=== PATIENT | female | born 1945 | race Caucasian/White ===

== ENCOUNTER 2017-05-03 09:13 | Day surgery (SDC) | payer MEDICARE, BC ==
[2017-04-28 12:49] VITALS: BMI 26.5
[~2017-05-03 09:13] MED LIST: LACTATED RINGERS 1,000 ML IV SCH
[2017-05-03 09:30] VITALS: TEMP 98
[2017-05-03] MEDS ORDERED: LIDOCAINE 1% 20 ML VIAL (10MG/ML) FOR IV START INTRADERMA ONE (09:41)
[2017-05-03] MEDS ORDERED: PROPOFOL 10 MG/ML 20 ML VIAL IV ONE (10:42)
--- NOTE | 2017-05-03 11:06 | P.PCN ---
Date of Procedure: 05/03/17 Preoperative Diagnosis: Postoperative Diagnosis: Procedure(s) Performed: BRIEF HISTORY: Patient is a 72-year-old pleasant white female, scheduled for an elective colonoscopy as a part of evaluation of prior history of colon polyps. She also has family history of colon cancer. Her last colonoscopy was in 5 years ago. PROCEDURE PERFORMED: Colonoscopy and snare polypectomy. PREOPERATIVE DIAGNOSIS: History of colon polyps/family history of colon cancer. IV sedation per Anesthesia. PROCEDURE: After informed consent was obtained, the patient, was brought into the endoscopy unit. IV sedation was administered by Anesthesia under continuous monitoring. Digital rectal examination was normal. Initially the Olympus CF- 160 flexible video colonoscope was then inserted in the rectum, gradually advanced into the cecum without any difficulty. Careful examination was performed as the scope was gradually being withdrawn. Ileocecal valve and the appendiceal orifice were visualized and appeared normal. Prep was excellent. Mucosa of the cecum, ascending colon, transverse colon, descending colon, sigmoid colon, and rectum appeared normal. In the rectum there were 5 polyps measuring between 5 mm to 1 minute in size all of which were removed by snare polypectomy. Scattered sigmoid diverticula seen. Retroflexion was performed in the rectum and no lesions were seen. The patient tolerated the procedure well. IMPRESSION: 5 mm 4 and 1 cm rectal polyps status post snare polypectomy Scattered sigmoid diverticulosis. RECOMMENDATIONS: Findings of this examination were discussed with the patient as well as her family. She was advised to follow with the biopsy results. If the biopsy shows a tubular adenoma she can have a repeat colonoscopy in 5 years. Implants: Indications for Procedure: Operative Findings: Description of Procedure:
[2017-05-03 11:31] VITALS: BP 149/77; PULSE 62; RESP 20
== END 2017-05-03 12:04 | disposition home or self-care (01) ==
LOC: ORWHC2ENDO 09:13
PROVIDERS: ATTEND Internal Medicine Gastroenterology
DX: Z12.11 Encounter for screening for malignant neoplasm of colon (principal); K63.5 Polyp of colon; K63.4 Enteroptosis; K57.30 Diverticulosis of large intestine without perforation or abscess without bleeding; Z86.010 Personal history of colon polyps; Z80.0 Family history of malignant neoplasm of digestive organs; I10 Essential (primary) hypertension; Z86.73 Personal history of transient ischemic attack (TIA), and cerebral infarction without residual deficits; Z79.82 Long term (current) use of aspirin; Z79.899 Other long term (current) drug therapy; Z88.2 Allergy status to sulfonamides; Z88.8 Allergy status to other drugs, medicaments and biological substances; Z88.1 Allergy status to other antibiotic agents; Z91.041 Radiographic dye allergy status; Z88.0 Allergy status to penicillin; Z91.013 Allergy to seafood
CPT/HCPCS: 88305; 45385; J2704

== ENCOUNTER → 2018-07-11 | Outpatient (CLI) | payer MEDICARE, BC ==
--- NOTE | 2018-07-12 12:22 | MM ---
Reason for exam: screening (asymptomatic). Last mammogram was performed 3 years and 1 month ago. History: Patient is postmenopausal and history of other cancer. Took hormonal contraceptives for 8 years beginning at age 22. Took estrogen for 6 years beginning at age 50. Took progesterone for 6 years beginning at age 50. Physical Findings: A clinical breast exam by your physician is recommended on an annual basis and results should be correlated with mammographic findings. MG 3D Screening Mammo W/Cad Bilateral CC and MLO view(s) were taken. Prior study comparison: June 03, 2015, bilateral MG screening mammo w CAD. June 02, 2014, bilateral MG screening mammo w CAD. The breast tissue is heterogeneously dense. This may lower the sensitivity of mammography. Stable benign calcifications. There is chronic nodularity bilaterally. ASSESSMENT: Incomplete: need additional imaging evaluation, BI-RAD 0 RECOMMENDATION: Ultrasound of the right breast. (at palpable) [facility] will attempt to contact patient to return for ultrasound.
== END ==
LOC: RADMAMWWP 13:41
PROVIDERS: ATTEND Family Medicine
DX: Z12.31 Encounter for screening mammogram for malignant neoplasm of breast (principal)
CPT/HCPCS: 77063; 77067

== ENCOUNTER → 2018-07-13 | Outpatient (CLI) | payer MEDICARE, BC ==
--- NOTE | 2018-07-13 12:03 | USB ---
Reason for exam: additional evaluation requested from abnormal screening. History: Patient is postmenopausal and history of other cancer. Took hormonal contraceptives for 8 years beginning at age 22. Took estrogen for 6 years beginning at age 50. Took progesterone for 6 years beginning at age 50. Physical Findings: Nurse Summary: palpable at 3 o'clock soft mobile 0.5cm round (nurse werner). US Breast Workup Limited RT Right limited breast ultrasound including focal area of concern, retroareolar and axilla demonstrates no cystic or solid lesion seen. These results were verbally communicated with the patient and result sheet given to the patient on 07/13/18. ASSESSMENT: Negative, BI-RAD 1 RECOMMENDATION: Return to routine screening mammogram schedule for both breasts. Manage patient on a clinical basis.
== END | disposition home or self-care (01) ==
LOC: RADUSWWP 10:14
PROVIDERS: ATTEND Family Medicine
DX: R92.8 Other abnormal and inconclusive findings on diagnostic imaging of breast (principal)

== ENCOUNTER → 2018-08-17 | Outpatient (CLI) | payer MEDICARE, BC ==
[2018-08-17 10:35] VITALS: BP 148/64; PULSE 58; RESP 18; TEMP 96.8; BMI 24.7
--- NOTE | 2018-08-17 10:51 | P.GSHP ---
History of Present Illness H&P Date: 08/17/18 Chief Complaint: breast exam The patient is a 73 year old white female with a complaint of nodularity in the right breast. This was approximately a month ago at the time of her mammogram. The mammogram was felt to be incomplete and an ultrasound of the right breast was recommended which was done on [id number]. Following this the recommendation was for repeat bilateral mammogram in 1 year back on schedule. The patient denies any trauma to her progress. She denies any skin infection or skin changes of concern. No abnormal nipple discharge. The patient has not had any prior breast surgery. The patient is not having any pain in her breast at this time. The patient does like chocolate but has not had any recently. The patient it does smoke. The patient does not drink coffee or caffeinated beverages. Family History: mother: colon cancer,skin cancer squamous cell Hormonal History: menarche: 12 : 3, 3 children, first at age 21, breast fed: no menopause: 50 BCP: 15 years hormones: 7 years Past surgical history: 1. Appendectomy for cyst 2. tubaligation Past Medical History: arthritis Social History: smoke: 10 cig/day alcohol: daily drugs: none - Constitutional Constitutional: Denies chills, Denies fever - EENT Comment: bilateral cataracts Eyes: bilateral decreased vision, denies blurred vision, denies pain Ears: deny: decreased hearing, tinnitus Ears, nose, mouth and throat: Denies headache, Denies sore throat - Breasts Breasts: bilateral: as per HPI - Cardiovascular Cardiovascular: Reports high blood pressure, Reports shortness of breath, Denies chest pain - Respiratory Respiratory: Reports cough - Gastrointestinal Comment: PUD - Genitourinary (Female) Genitourinary: Denies dysuria, Denies hematuria - Menstruation Menstruation: Reports postmenopausal - Musculoskeletal Comment: ARTHRITIS DJD - Integumentary Comment: excema on legs - Neurological Comment: sciatica - Psychiatric Psychiatric: Denies anxiety, Denies depression - Endocrine Endocrine: Denies fatigue, Denies weight change - Hematologic/Lymphatic Comment: baby aspirin - Allergic/Immunologic Allergic/Immunologic: Reports seasonal allergies Past Medical History Past Medical History: CVA/TIA, Hyperlipidemia, Hypertension Additional Past Medical History / Comment(s): TIA X 2 History of Any Multi-Drug Resistant Organisms: None Reported Past Surgical History: Appendectomy Additional Past Surgical History / Comment(s): COLONOSCOPY Past Anesthesia/Blood Transfusion Reactions: No Reported Reaction Smoking Status: Former smoker - Past Family History Sister(s) Additional Family Medical History / Comment(s): car accident 67years old Father Family Medical History: Myocardial Infarction ([place]) Additional Family Medical History / Comment(s): 58years old Mother Family Medical History: Cancer Additional Family Medical History / Comment(s): at 94years old Medications and Allergies Home Medications Medication Instructions Recorded Confirmed Type Atenolol 50 mg PO BID 06/12/15 08/17/18 History Lovastatin 40 mg PO PC-SUPPER 06/12/15 08/17/18 History Aspirin EC [Ecotrin] 81 mg PO DAILY #30 tablet.dr 06/14/15 08/17/18 Rx Glucosamine/Chondr Blanco A Sod [Osteo 1 each PO DAILY 04/12/16 08/17/18 History Bi-Flex Caplet] Multivitamins, Thera [Theragran] 1 each PO DAILY 04/12/16 08/17/18 History Vitamin E (Dl,Tocopheryl Acet) 400 unit PO DAILY 04/12/16 08/17/18 History [Vitamin E] Biotin 5,000 mcg PO DAILY 08/17/18 08/17/18 History Allergies Allergy/AdvReac Type Severity Reaction Status Date / Time ampicillin Allergy Rash/Hives Verified 08/17/18 10:28 cephalexin monohydrate Allergy Unknown Verified 08/17/18 10:28 [From Keflex] Iodinated Contrast- Oral and Allergy Unknown Verified 08/17/18 10:28 IV Dye [Iodinated Contrast Media - IV Dye] Iodine and Iodide Containing Allergy Unknown Verified 08/17/18 10:28 Produc Penicillins Allergy Dyspnea Verified 08/17/18 10:28 shellfish derived [Shellfish] Allergy Unknown Verified 08/17/18 10:28 Sulfa (Sulfonamide Allergy Rash/Hives Verified 08/17/18 10:28 Antibiotics) Surgical - Exam - General well developed, well nourished, no distress - Eyes normal ocular movement - ENT no hearing loss, no congestion - Neck no masses, trachea midline - Respiratory normal respiratory effort, clear to auscultation - Cardiovascular Rhythm: regular Heart Sounds: normal: S1, S2 - Abdomen Abdomen: soft, non tender, no guarding, no rigid, no rebound - Integumentary Breast examination: Right breast: Multipositional exam of dominant masses or nodules of concern Right axilla: No adenopathy of concern Left breast: Multipositional exam no dominant masses or nodules of concern, on the left nipple there is a small area measured to be approximately 5 mm x 2 mm in size of light colored skin change the patient states it is been there for approximately 30 years Left axilla: No adenopathy of concern - Neurologic no disoriented, no combative Results Mammogram and ultrasound results reviewed Assessment and Plan Assessment: Impression: 1. Cystic change in right breast which appears to have resolved 2. Small nipple skin change which has been present for approximately 30 years 3. Fibrocystic breast changes 4. Nicotine dependence 5. Hypertension 6. Eczema Plan: 1. Bilateral breast mammogram in 1 year from prior mammogram with physician exam at that time 2. Six-month follow-up related to the left breast nipple lesion 3. Medical management of medical conditions We have discussed the cyst and the breast may be related to caffeine intake and nicotine. The patient understands this and is trying to stop smoking at this time. Cc: Dr. Suarez
== END ==
LOC: WWCWWP 09:49
PROVIDERS: ATTEND Surgery
DX: Z53.9 Procedure and treatment not carried out, unspecified reason (principal)

== ENCOUNTER → 2018-12-27 | Outpatient (CLI) | payer MEDICARE, BC ==
--- NOTE | 2018-12-27 16:00 | MR ---
EXAMINATION TYPE: MR brain wo/w con DATE OF EXAM: 12/27/2018 COMPARISON: NONE HISTORY: Anosmia. Lack of smell and taste TECHNIQUE: Multiplanar, multisequence images of the brain and brainstem is performed without and with IV contras t, utilizing 6 mL intravenous Gadavist . FINDINGS: Diffusion weighted images demonstrate no evidence of a recent infarct or other diffusion ab normality. There is no extra-axial fluid collection. Mild burden nonspecific white matter changes se en as few areas of T2/FLAIR hyperintensity scattered within the subcortical, pericallosal, and perive ntricular white matter. These measure up to 6 x 3 mm on the right. The ventricular system and cistern al spaces are mildly prominent compatible with age-related volume loss. The brain volume is age appr opriate. Midline structures demonstrate normal morphology. The craniocervical junction appears within normal limits. Post contrast images demonstrate no abnormal enhancement. The dural venous sinuses appear pa tent. The visualized sinuses demonstrate very minimal mucosal thickening of the maxillary and ethmoid sinuses. Remaining paranasal sinuses and mastoid air cells are are clear and the globes are intact. A very small Thornwaldt cyst is seen . There is scant amount of fluid in the dependent frontal sinus is adjacent to the olfactory bulbs with out erosion through the frontal sinuses or extra-axial mass. No abnormal enhancement is seen along th e olfactory nerves. Elyse yoli is unremarkable without deviation. There is no mass at the cerebella r pontine angle. IMPRESSION: 1. No abnormal enhancement or mass effect on the olfactory nerves. Small amount of adjacent mucosal t hickening is seen within the frontal sinuses however no osseous erosion or extra-axial fluid collecti on is seen. 2. No acute infarct, mass effect or abnormal intracranial enhancement. 3. Very minimal mucosal thickening of the maxillary and ethmoid sinuses. 4. Mild burden nonspecific white matter change without enhancement is seen in the periventricular, foster bcortical and pericallosal region. 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
== END | disposition home or self-care (01) ==
LOC: RADMRIMAIN 12:07
PROVIDERS: ATTEND Otolaryngology
DX: R90.89 Other abnormal findings on diagnostic imaging of central nervous system (principal); R43.0 Anosmia
CPT/HCPCS: 70553; A9585

== ENCOUNTER → 2019-02-15 | Outpatient (CLI) | payer MEDICARE, BC ==
[2019-02-15 11:49] VITALS: BP 146/75; PULSE 65; RESP 16; TEMP 98.7; BMI 24.8
--- NOTE | 2019-02-15 12:33 | P.PN ---
Subjective Progress Note Date: 02/15/19 Principal diagnosis: skin change left nipple area The patient is a 73-year-old white female who was initially seen in July 2018. At that time there was noted to be a small area of skin color change at the left in the periareolar region. The patient states that this area has been stable for approximately 30 years. However she is coming back for today's examination just to confirm that this area has remained stable. Her last mammogram was done in June 2018. This was a 3-D mammogram after which it was recommended that she have an ultrasound of the right breast. Ultrasound of the right breast was benign as well and based on these radiographs was recommended she have repeat bilateral mammogram in June 2019. At that time he understood document a small mobile 0.5 cm lesion at 3:00 in the right breast. The patient did not feel anything in her breasts initially and does not feel anything in her breast at this time. I also on physical exam in July 2018 did not find anything I was concerned about in her breasts. The patient smokes rarely. She does not drink caffeinated beverages. And although she likes chocolate she does not eat it routinely. Family history: Mother: Colon cancer, squamous cell carcinoma of the skin Past Surgical History: 1. appy 2. tubaligation Medical History: 1. arthritis 2. 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) Review of systems: HEENT: Lost sense of taste and smell in August 2018 Lungs: Negative Heart: Negative GI: Negative : negative neurologic: mini strokes Musculoskeletal: Arthritis Psychiatric: Negative Bleeding abnormalities: Negative ALLERGIES: Seasonal and see H&P Objective - Vital Signs Vital signs: Vital Signs Temp 98.7 F 02/15/19 11:46 Pulse 65 02/15/19 11:46 Resp 16 02/15/19 11:46 BP 146/75 02/15/19 11:46 Pulse Ox 95 02/15/19 11:46 Intake & Output 02/14/19 02/15/19 02/15/19 18:59 06:59 18:59 Weight 61.689 kg - Exam BMI 24.9 - Constitutional General appearance: Present: average body habitus - EENT Eyes: Present: EOMI ENT: Present: hearing grossly normal - Neck Neck: Present: normal ROM - Respiratory Respiratory: bilateral: CTA - Cardiovascular Rhythm: regular Heart sounds: normal: S1, S2 - Integumentary Integumentary: Present: normal turgor - Musculoskeletal Musculoskeletal: Present: gait normal - Psychiatric Psychiatric: Present: A&O x's 3, appropriate affect, intact judgment & insight - Additional findings Additional findings: Breast examination: Right breast: Multi-positional exam fibrocystic changes Right axilla: No adenopathy of concern Left breast: Multi-positional exam fibrocystic changes, no dominant masses or nodules of concern At the nipple there was a small white protuberance which is 4 mm x 3 mm in size, this has not changed and is stable as per the patient for the past 30 years Left axilla: No adenopathy of concern Assessment and Plan Assessment: Impression: 1. prior TIA 2. skin lesion left nipple area/stable 3. fibrocystic breast changes 4. bilateral mammogram 2017 5. loss of taste and smell 6. family history of cancer Plan: 1. bilateral mammogram 1018 2. appt after mammogram 3. medical management of medical conditions CC: Dr. Suarez
== END ==
LOC: WWCWWP 11:35
PROVIDERS: ATTEND Surgery
DX: Z53.9 Procedure and treatment not carried out, unspecified reason (principal)

== ENCOUNTER → 2019-07-09 | Outpatient (CLI) | payer MEDICARE, BC ==
--- NOTE | 2019-07-10 11:25 | MM ---
Reason for exam: screening (asymptomatic). Last mammogram was performed 1 year ago. History: Patient is postmenopausal and history of other cancer. Took hormonal contraceptives for 8 years beginning at age 22. Took estrogen for 6 years beginning at age 50. Took progesterone for 6 years beginning at age 50. Physical Findings: A clinical breast exam by your physician is recommended on an annual basis and results should be correlated with mammographic findings. MG 3D Screening Mammo W/Cad Bilateral CC and MLO view(s) were taken. Prior study comparison: July 11, 2018, bilateral MG 3d screening mammo w/cad. June 03, 2015, bilateral MG screening mammo w CAD. The breast tissue is heterogeneously dense. This may lower the sensitivity of mammography. No significant changes when compared with prior studies. ASSESSMENT: Benign, BI-RAD 2 RECOMMENDATION: Routine screening mammogram of both breasts in 1 year.
== END | disposition home or self-care (01) ==
LOC: RADMAMWWP 12:44
PROVIDERS: ATTEND Surgery
DX: Z12.31 Encounter for screening mammogram for malignant neoplasm of breast (principal)
CPT/HCPCS: 77063; 77067

== ENCOUNTER → 2019-07-12 | Outpatient (CLI) | payer MEDICARE, BC ==
[2019-07-12 11:49] VITALS: BP 127/82; PULSE 69; RESP 18; TEMP 97.9; BMI 24.3
--- NOTE | 2019-07-12 12:27 | P.PN ---
Subjective Progress Note Date: 07/12/19 Principal diagnosis: skin change left breast, fibrocystic breast changes Jamila presents today for examination of the skin of her left breast/ aerolar area where she has a dark area near the nipple periareolar complex which she states has not changed. Additionally she does not report any lumps masses or nodules in either breast. She is not complaining of any nipple discharge or skin changes. She is not complaining of any pain in her breast. She has no history of any recent trauma or infections to the breast. She had abilateral mammogra on 07-09 which was benign BIRAD 2. About seven years ago the patient was having pain bilaterally in her breast however, stopped her caffiene intake with resolution of the pain. She does not drink caffiene. She does not smoke regularly. She does eat chocolate regularaly. Family history: Mother: Colon cancer, squamous cell carcinoma of the skin Past Surgical History: 1. appy 2. tubaligation Medical History: 1. arthritis 2. 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 TIA times 5, affected memmory Review of systems: HEENT: Lost sense of taste and smell in August 2018 Lungs: Negative Heart: Negative GI: Negative : negative neurologic: mini strokes Musculoskeletal: Arthritis Psychiatric: Negative Bleeding abnormalities: Negative ALLERGIES: Seasonal and see H&P Objective - Vital Signs Vital signs: Vital Signs Temp 97.9 F 07/12/19 11:44 Pulse 69 07/12/19 11:44 Resp 18 07/12/19 11:44 BP 127/82 07/12/19 11:44 Pulse Ox 98 07/12/19 11:44 Intake & Output 07/11/19 07/12/19 07/12/19 18:59 06:59 18:59 Weight 60.328 kg - Exam BMI 24.3 - Constitutional General appearance: Present: average body habitus - EENT Eyes: Present: EOMI ENT: Present: hearing grossly normal - Neck Neck: Present: normal ROM - Respiratory Respiratory: bilateral: CTA - Cardiovascular Rhythm: regular Heart sounds: normal: S1, S2 - Gastrointestinal Gastrointestinal Comment(s): no guarding or rebound, normal bowel sounds General gastrointestinal: Present: soft - Musculoskeletal Musculoskeletal: Present: gait normal - Psychiatric Psychiatric: Present: A&O x's 3, appropriate affect - Additional findings Additional findings: breast exam: right breast: Multi-positional exam fibrocystic changes, no dominant masses or nodules of concern Right axilla: No adenopathy of concern Left breast: Multi-positional exam fibrocystic changes, no dominant mass or not his of concern, at 12 oclock position of the nipple which is light in color and has not changed for many years left axilla: no adenopathy of concern Assessment and Plan Assessment: impression: 1. fibrocystic breast changes 2. skin change left nipple 3. bilateral mammogram [facility]2018 BIRAD 2 follow up in one year 4. loss of taste and smell 5. family history of cancer 6. prior TIA's has had 5; difficulty with memmory plan: 1. bilateral mammogram in 1 year with appointment at that time 2. call if any changes in skin lesion left nipple, have discussed resection of nipple skin lesion and patient does not want to do this at this timem 3. medical management of medical conditions CC: Dr. Suarez time 20 minutes
== END | disposition home or self-care (01) ==
LOC: WWCWWP 11:33
PROVIDERS: ATTEND Surgery
DX: Z53.9 Procedure and treatment not carried out, unspecified reason (principal)

== ENCOUNTER → 2020-07-13 | Outpatient (CLI) | payer MEDICARE, BC ==
--- NOTE | 2020-07-15 08:43 | MM ---
Reason for exam: screening (asymptomatic). Last mammogram was performed 1 year ago. History: Patient is postmenopausal and history of other cancer. Took hormonal contraceptives for 8 years beginning at age 22. Took estrogen for 6 years beginning at age 50. Took progesterone for 6 years beginning at age 50. Physical Findings: A clinical breast exam by your physician is recommended on an annual basis and results should be correlated with mammographic findings. MG 3D Screening Mammo W/Cad Bilateral CC and MLO view(s) were taken. Prior study comparison: July 09, 2019, bilateral MG 3d screening mammo w/cad. July 11, 2018, bilateral MG 3d screening mammo w/cad. The breast tissue is heterogeneously dense. This may lower the sensitivity of mammography. No significant changes when compared with prior studies. ASSESSMENT: Benign, BI-RAD 2 RECOMMENDATION: Routine screening mammogram of both breasts in 1 year.
== END | disposition home or self-care (01) ==
LOC: RADMAMWWP 13:57
PROVIDERS: ATTEND Surgery
DX: Z12.31 Encounter for screening mammogram for malignant neoplasm of breast (principal)
CPT/HCPCS: 77063; 77067

== ENCOUNTER → 2020-07-17 | Outpatient (CLI) | payer MEDICARE, BC ==
[2020-07-17 12:00] VITALS: BP 157/66; PULSE 66; RESP 16; TEMP 98
--- NOTE | 2020-07-17 12:13 | P.PN ---
Subjective Progress Note Date: 07/17/20 Principal diagnosis: fibrocystic breast exam Jamila is a 75 year old white female who has a history of fibrocystic breast changes. She underwent a bilateral mammogram on [id number] which was benign BIRADS 2. She states that she feels nodules under both of her arms. She does not feel anything in either breast. The nodules are nontender. She does not complain of any nipple discharge or skin changes.History of any fever or chills. No history of any infection. Caffeine: rare Nicotine: 8 cigarettes per day Theophylline: Patient eats M&Ms Family History: mother: colon cancer,skin cancer squamous cell Hormonal History: menarche: 12 : 3, 3 children, first at age 21, breast fed: no menopause: 50 BCP: 15 years hormones: 7 years Past surgical history: 1. Appendectomy for cyst 2. tubaligation Past Medical History: arthritis Inability to taste or smell Social History: smoke: 8 cig/day alcohol: daily drugs: none - Constitutional Constitutional: Denies chills, Denies fever - EENT Comment: bilateral cataracts Eyes: bilateral decreased vision, denies blurred vision, denies pain Ears: deny: decreased hearing, tinnitus Ears, nose, mouth and throat: Denies headache, Denies sore throat - Breasts Breasts: bilateral: as per HPI - Cardiovascular Cardiovascular: Reports high blood pressure, Reports shortness of breath, Denies chest pain - Respiratory Respiratory: Reports cough - Gastrointestinal Comment: PUD - Genitourinary (Female) Genitourinary: Denies dysuria, Denies hematuria - Menstruation Menstruation: Reports postmenopausal - Musculoskeletal Comment: ARTHRITIS DJD - Integumentary Comment: excema on legs - Neurological Comment: sciatica - Psychiatric Psychiatric: Denies anxiety, Denies depression - Endocrine Endocrine: Denies fatigue, Denies weight change - Hematologic/Lymphatic Comment: baby aspirin - Allergic/Immunologic Allergic/Immunologic: Reports seasonal allergies Objective - Vital Signs Vital signs: Vital Signs Temp 98.0 F 07/17/20 11:55 Pulse 66 07/17/20 11:55 Resp 16 07/17/20 11:55 BP 157/66 07/17/20 11:55 Pulse Ox 99 07/17/20 11:55 Intake & Output 11/19/20 11/20/20 11/20/20 18:59 06:59 18:59 Weight 61.235 kg - Exam BMI 26.4 - Constitutional General appearance: Present: average body habitus - EENT Eyes: Present: EOMI ENT: Present: hearing grossly normal - Neck Details: Right submandibular area tender/probable lymph node at this site Neck: Present: normal ROM - Respiratory Respiratory: bilateral: CTA - Cardiovascular Rhythm: regular Heart sounds: normal: S1, S2 - Gastrointestinal General gastrointestinal: Present: normal bowel sounds, soft - Integumentary Integumentary: Present: normal turgor - Musculoskeletal Musculoskeletal: Present: gait normal - Psychiatric Psychiatric: Present: A&O x's 3, appropriate affect - Additional findings Additional findings: breast exam: BRA: 36DD inspection: bilateral grade 2/3 ptosis, bilateral shoulder notching palpation: right breast: Multiple positional exam fibrocystic changes, no dominant masses or nodules of concern Right axilla: Skin tag no adenopathy of concern Left breast: Multi-positional exam fibrocystic changes no dominant masses or nodules of concern, there is some discoloration of the nipple which has been present for many years as per the patient Left axilla: No adenopathy of concern Assessment and Plan Assessment: Impression: 1. Fibrocystic breast changes 2. Tender submandibular no right side 3. Right axillary skin tag, left axillary probable seborrheic keratosis Plan: 1. Follow-up with primary care doctor regarding tender submandibular node 2. Follow-up mammogram in 1 year with physician exam at that time 2. Continue surveillance of axillary skin changes patient to call if these enlarged we will be happy to remove them CC: Dr. Suarez encounter 15 monutes, > 50% of time in planning and counselling
== END | disposition home or self-care (01) ==
LOC: WWCWWP 11:30
PROVIDERS: ATTEND Surgery
DX: Z53.9 Procedure and treatment not carried out, unspecified reason (principal)

== ENCOUNTER → 2021-02-22 | Outpatient (CLI) | payer MEDICARE, BC ==
--- NOTE | 2021-02-22 20:30 | CT ---
EXAMINATION TYPE: CT brain wo con DATE OF EXAM: 02/22/2021 COMPARISON: 06/12/2015 HISTORY: 75-year-old female R41.3, other amnesia, Dizziness. TECHNIQUE: Examination was done in axial plane without intravenous contrast. Coronal and sagittal r econstructions performed. CT DLP: 1121 mGycm Automated exposure control for dose reduction was used. FINDINGS: There is no evidence of acute intracranial hemorrhage, acute ischemic changes, mass, mass-effect, or extra-axial fluid collection. There is no effacement of cerebral sulci or basal subarachnoid cister ns. There is no hydrocephalus. There is no midline shift. Nava-white matter distinction is preserv ed. Some mild new periventricular white matter hypodensity particularly on the right. Moderate prostatic calcifications of the carotid siphons. Rightward nasal septal deviation. Paranasal sinuses and mastoid air cells are pneumatized. IMPRESSION: Mild patchy burden of chronic small vessel ischemic disease, progressed from 2014. No acute intracran ial abnormality seen.
== END | disposition home or self-care (01) ==
LOC: RADCTMAIN 12:07
PROVIDERS: ATTEND Family Medicine
DX: I67.82 Cerebral ischemia (principal)
CPT/HCPCS: 70450

== ENCOUNTER → 2021-02-26 | Outpatient (CLI) | payer MEDICARE, BC ==
--- NOTE | 2021-02-26 14:40 | US ---
EXAMINATION TYPE: US carotid duplex BILAT DATE OF EXAM: 02/26/2021 COMPARISON: US 2015 CLINICAL HISTORY: R41.3 Other amnesia. Dizziness EXAM MEASUREMENTS: RIGHT: Peak Systolic Velocity (PSV) cm/sec ----- Right CCA: 73.2 ----- Right ICA: 167.5 ----- Right ECA: 67.9 ICA/CCA ratio: 2.3 RIGHT: End Diastole cm/sec ----- Right CCA: 17.7 ----- Right ICA: 47.1 ----- Right ECA: 13.4 LEFT: Peak Systolic Velocity (PSV) cm/sec ----- Left CCA: 80.9 ----- Left ICA: 122.0 ----- Left ECA: 65.5 ICA/CCA ratio: 1.5 LEFT: End Diastole cm/sec ----- Left CCA: 23.8 ----- Left ICA: 37.7 ----- Left ECA: 11.4 VERTEBRALS (direction of flow): Right Vertebral: Antegrade Left Vertebral: Antegrade Rhythm: Normal Torturous distal bilateral ICA, elevated velocity: right distal ICA, right ICA/CCA ratio 2.3 Moderate atherosclerotic plaque at the proximal left common carotid artery. Mild atherosclerotic plaq ue at the left common carotid artery bifurcation. Mild atherosclerotic plaque at the right common car otid artery bifurcation and proximal right common carotid artery. IMPRESSION: 1. The peak systolic velocity of the right internal carotid artery is 167.5 cm/s, which is elevated. The right ICA to CCA ratio is 2.3. This is elevated. End-diastolic velocity of the right ICA is also elevated at 47.1 cm/s. This is suggestive of 50-69% stenosis of the right internal carotid artery. 2. No hemodynamically significant stenosis of the left internal carotid artery. 3. Tortuous bilateral distal internal carotid arteries. 4Mild atherosclerotic plaque at the right common carotid artery bifurcation and proximal right common carotid artery.. 5. Moderate atherosclerotic plaque at the proximal left common carotid artery. Mild atherosclerotic p laque at the left common carotid artery bifurcation. Criteria for Assigning % of Stenosis / Diameter reduction (Estimation based on the indirect measurements of the internal carotid artery velocities (ICA PSV). 1. Normal (no stenosis)=ICA PSV < 125 cm/s: ratio < 2.0: ICA EDV<40 cm/s. 2. Less than 50% stenosis=ICA PSV < 125 cm/s: ratio < 2.0: ICA EDV<40 cm/s. 3. 50 to 69% stenosis=ICA PSV of 125 to 230 cm/s: ration 2.0 ? 4.0: ICA EDV 40-100 cm/s. 4. Greater than 70% stenosis to near occlusion= ICA PSV > 230 cm/s: ratio > 4.0: ICA EDV > 100 cm/s. 5. Near occlusion= ICA PSV velocities may be low or undetectable: variable ratio and ICA EDV. 6. Total occlusion=unable to detect flow.
== END | disposition home or self-care (01) ==
LOC: RADUSWWP 11:00
PROVIDERS: ATTEND Family Medicine
DX: I65.23 Occlusion and stenosis of bilateral carotid arteries (principal)
CPT/HCPCS: 93880

== ENCOUNTER → 2021-04-10 | Outpatient (CLI) | payer MEDICARE, BC ==
--- NOTE | 2021-04-11 02:03 | MR ---
EXAMINATION TYPE: MR angio neck wo/w con DATE OF EXAM: 04/10/2021 COMPARISON: None HISTORY: unsteady gait CONTRAST: Standard multiplanar, multisequence MRI departmental protocol utilizing 6ml mL intravenous Gadavist g adolinium contrast. MR angiographic images were obtained of the cervical carotid and vertebral arteries. Exam limited slightly by motion. There is arterial flow in the common internal and external carotid a rteries bilaterally. There is normal branching pattern of the great vessels on the aortic arch. There is arterial flow in both vertebral arteries. Carotid artery bifurcations appear to be widely patent. There is no evidence of stenosis. Vertebral arteries are fairly symmetric. There is no evidence of a rterial dissection. IMPRESSION: Negative MR angiography exam of the neck. No evidence of any significant stenosis.
--- NOTE | 2021-04-11 02:27 | MR ---
EXAMINATION TYPE: MR brain wo con DATE OF EXAM: 04/10/2021 COMPARISON: 12/27/[address] head on synpase, unsteady gait HISTORY: prior ct head on synpase, unsteady gait There is cerebral cortical atrophy. There is no mass effect nor midline shift. Diffusion images show no sign of an acute infarct. On the T2 and FLAIR images there are scattered areas of white matter inc reased signal measuring up to 5 mm. Total number is approximately 15. There is 3 mm focus of increase d signal in the right side of the hayley. The cerebellum is intact. Corpus callosum is intact. Sella tu rcica is intact. There is no evidence of orbital mass. IMPRESSION: Scattered white matter high signal foci in both cerebral hemispheres. Cerebral atrophy. This probably relates to chronic small vessel ischemia. There is overall not a significant change compared to old exam. Small focus of increased signal in the right side of the hayley is a change compared to old exam.
--- NOTE | 2021-04-11 02:31 | MR ---
EXAMINATION TYPE: MR angio head wo con DATE OF EXAM: 04/10/2021 COMPARISON: None HISTORY: no prior, unsteady gait MR angiographic images were obtained of the intracerebral arterial circulation. FINDINGS: There is arterial flow in the anterior middle and posterior cerebral arteries. There is arterial flow in the vertebrobasilar artery system. There is no mass effect. I see no evidence of intracranial ane urysm or neovascularity. There is no significant size of the posterior communicating arteries. There is no evidence of arterial stenosis. IMPRESSION: Normal MR angiogram of the brain.
== END | disposition home or self-care (01) ==
LOC: RADMRIMAIN 13:31
PROVIDERS: ATTEND Psychiatry & Neurology Neurology
DX: R26.9 Unspecified abnormalities of gait and mobility (principal); G31.9 Degenerative disease of nervous system, unspecified; R90.82 White matter disease, unspecified
CPT/HCPCS: 70544; 70549; 70551; A9585

== ENCOUNTER → 2021-07-15 | Outpatient (CLI) | payer MEDICARE, BC ==
--- NOTE | 2021-07-16 11:40 | MM ---
Reason for exam: screening (asymptomatic). Last mammogram was performed 1 year ago. History: Patient is postmenopausal and history of other cancer. Took hormonal contraceptives for 8 years beginning at age 22. Took estrogen for 6 years beginning at age 50. Took progesterone for 6 years beginning at age 50. Physical Findings: A clinical breast exam by your physician is recommended on an annual basis and results should be correlated with mammographic findings. MG 3D Screening Mammo W/Cad Bilateral CC, MLO, and XCCL view(s) were taken. Prior study comparison: July 13, 2020, bilateral MG 3d screening mammo w/cad. July 09, 2019, bilateral MG 3d screening mammo w/cad. The breast tissue is heterogeneously dense. This may lower the sensitivity of mammography. There are benign appearing round calcifications bilaterally. There is no discrete abnormality. ASSESSMENT: Benign, BI-RAD 2 RECOMMENDATION: Routine screening mammogram of both breasts in 1 year.
== END | disposition home or self-care (01) ==
LOC: RADMAMWWP 11:18
PROVIDERS: ATTEND Surgery
DX: Z12.31 Encounter for screening mammogram for malignant neoplasm of breast (principal); Z78.0 Asymptomatic menopausal state
CPT/HCPCS: 77063; 77067

== ENCOUNTER → 2021-07-29 | Outpatient (CLI) | payer MEDICARE, BC ==
[2021-07-29 11:52] VITALS: BP 147/72; PULSE 65; RESP 18
[2021-07-29 11:54] VITALS: TEMP 98.1
--- NOTE | 2021-07-29 11:54 | P.PN ---
Subjective Progress Note Date: 07/29/21 Principal diagnosis: Fibrocystic breast changes fibrocystic breast exam Jamila is a 76 year old white female who has a history of fibrocystic breast changes. She underwent a bilateral mammogram on which was benign BIRADS 2. She does not feel anything in either breast. The nodules are nontender. She does not complain of any nipple discharge or skin changes.History of any fever or chills. No history of any infection. Fell yesterday and hyrt left hip and knee. Caffeine: rare Nicotine: 8 cigarettes per day chocolate: Patient eats peanut M&Ms Family History: mother: colon cancer,skin cancer squamous cell Hormonal History: menarche: 12 : 3, 3 children, first at age 21, breast fed: no menopause: 50 BCP: 15 years hormones: 7 years Past surgical history: 1. Appendectomy for cyst 2. tubaligation Past Medical History: arthritis Inability to taste or smell Social History: smoke: 8 cig/day alcohol: daily drugs: none - Constitutional Constitutional: Denies chills, Denies fever - EENT Comment: bilateral cataracts Eyes: bilateral decreased vision, denies blurred vision, denies pain Ears: deny: decreased hearing, tinnitus Ears, nose, mouth and throat: Denies headache, Denies sore throat - Breasts Breasts: bilateral: as per HPI - Cardiovascular Cardiovascular: Reports high blood pressure, Reports shortness of breath, Denies chest pain - Respiratory Respiratory: Reports cough - Gastrointestinal Comment: PUD - Genitourinary (Female) Genitourinary: Denies dysuria, Denies hematuria - Menstruation Menstruation: Reports postmenopausal - Musculoskeletal Comment: ARTHRITIS DJD - Integumentary Comment: excema on legs - Neurological Comment: sciatica - Psychiatric Psychiatric: Denies anxiety, Denies depression - Endocrine Endocrine: Denies fatigue, Denies weight change - Hematologic/Lymphatic Comment: baby aspirin - Allergic/Immunologic Allergic/Immunologic: Reports seasonal allergies Objective - Constitutional General appearance: Present: cooperative - EENT Eyes: Present: EOMI ENT: Present: hearing grossly normal - Neck Neck: Present: normal ROM - Respiratory Respiratory: bilateral: CTA - Cardiovascular Heart sounds: normal: S1, S2 - Gastrointestinal General gastrointestinal: Present: soft - Integumentary Integumentary: Present: normal turgor - Psychiatric Psychiatric: Present: A&O x's 3, appropriate affect, intact judgment & insight - Additional findings Additional findings: Breast Exam: BRA: 36DDD inspection: Bilateral grade 3 ptosis; bilateral shoulder notching from heavy breast, beginning excoriation of the skin on the right side Palpation: Right breast: Multi-positional exam fibrocystic changes no dominant masses or nodules of concern Right axilla: No adenopathy of concern Left breast: Multi-positional exam fibrocystic changes no dominant masses or nodules of concern Left axilla: No adenopathy of concern Assessment and Plan Assessment: Impression: 1. Bilateral fibrocystic breast changes 2. Bilateral shoulder notching with excoriation of the skin on the right 3. Macromastia Plan: 1. Bilateral mammogram a physician exam in 1 year 2. We have discussed the possibility of breast reduction of the patient is not interested 3. I would recommend some shoulder padding secondary to the shoulder notching Cc: Dr. Suarez
== END ==
LOC: WWCWWP 11:38
PROVIDERS: ATTEND Surgery
DX: N60.11 Diffuse cystic mastopathy of right breast (principal); N60.12 Diffuse cystic mastopathy of left breast; M89.8X1 Other specified disorders of bone, shoulder; N62 Hypertrophy of breast; M19.90 Unspecified osteoarthritis, unspecified site; F17.210 Nicotine dependence, cigarettes, uncomplicated; Z88.1 Allergy status to other antibiotic agents; Z91.041 Radiographic dye allergy status; Z88.0 Allergy status to penicillin; Z88.2 Allergy status to sulfonamides; Z91.013 Allergy to seafood

== ENCOUNTER → 2022-02-16 | Outpatient (CLI) | payer MEDICARE, BC ==
--- NOTE | 2022-02-17 15:47 | US ---
EXAMINATION TYPE: US arterial LE multi level DATE OF EXAM: 02/16/2022 11:36 AM CLINICAL HISTORY: M79.605 PAIN IN LT LEG. leg pain when walking, stops when she sits Doppler Waveforms: Right: Biphasic Left: Biphasic Ankle-Brachial Indices: Right: 0.7 Left: 0.5 Toe Brachial Indices: Right: 0.8 Left: 0.5 Pressure gradients noted in the brachial to the popliteal artery on the left and again noted within t he left leg greater than right IMPRESSION: Abnormal BABAR bilaterally, correlate for peripheral vascular occlusive disease left great er than right
== END | disposition home or self-care (01) ==
LOC: RADUSWWP 10:14
PROVIDERS: ATTEND Family Medicine
DX: I73.9 Peripheral vascular disease, unspecified (principal)
CPT/HCPCS: 93923

== ENCOUNTER → 2022-12-06 | Outpatient (CLI) | payer MEDICARE, BC ==
--- NOTE | 2022-12-06 14:57 | MM ---
Reason for Exam: Screening (asymptomatic). Last mammogram was performed 1 year(s) and 5 month(s) ago. Patient History: Menarche at age 12. First Full-Term at age 21. Postmenopausal. Hormonal Contraceptives for 8 years from age 22 until age 32. Risk Values: Jazlyn 5 year model risk: 1.6%. NCI Lifetime model risk: 3.0%. Prior Study Comparison: 07/09/2019 Bilateral Screening Mammogram, [facility]. 07/13/2020 Bilateral Screening Mammogram, [facility]. 07/15/2021 Bilateral Screening Mammogram, [facility]. Tissue Density: The breast tissue is heterogeneously dense. This may lower the sensitivity of mammography. Findings: Analyzed By CAD. There is no suspicious group of microcalcifications or new suspicious mass in either breast. Overall Assessment: Negative, BI-RAD 1 Management: Screening Mammogram of both breasts in 1 year. A clinical breast exam by your physician is recommended on an annual basis and results should be correlated with mammographic findings. [facility] will attempt to contact patient to return for supplemental views and ultrasound if indicated. Electronically signed and approved by: Carlos Manuel Quinteros DO
== END | disposition home or self-care (01) ==
LOC: RADMAMWWP 11:47
PROVIDERS: ATTEND Family Medicine
DX: Z12.31 Encounter for screening mammogram for malignant neoplasm of breast (principal); Z78.0 Asymptomatic menopausal state
CPT/HCPCS: 77063; 77067

== ENCOUNTER 2024-09-19 13:33 | Emergency (ER) | payer MEDICARE, BC ==
[2024-09-19 13:39] VITALS: RESP 18; TEMP 97.8
--- NOTE | 2024-09-19 14:52 | CT ---
EXAMINATION TYPE: CT brain cspine wo con DATE OF EXAM: 09/19/2024 2:18 PM COMPARISON: 02/22/2021 CLINICAL INDICATION: Female, 79 years old with history of pain/trauma, , pain. Fall on thinners. TECHNIQUE: CT of the brain is performed utilizing 3 mm thick sections through the posterior fossa and 3 mm thick sections through the remaining calvarium. Study is performed within 24 hours of arrival to the hospital. Beam hardening artifact from dental work is evident Contrast used: mL of , (none if empty) CT DLP: 1410.8 mGycm, Automated exposure control for dose reduction was used. FINDINGS: No abnormal hyperdensity is present to suggest an acute intracranial hemorrhage. No mass lesion is evident. No acute infarcts are evident. There maybe some minimal chronic appearing periventricular white jaclyn er ischemic-type changes. Ventricles and sulci are appropriate for the patient age. Paranasal sinuses and mastoid air cells within the [id number] are clear. No significant interval change. IMPRESSIONS: 1. No acute intracranial process. Follow-up MRI can be performed as clinically indicated. CT cervical spine. COMPARISON: None TECHNIQUE: CT of the cervical spine is performed in the axial plane at 2 mm thick sections. Reconstr ucted images in the coronal, and sagittal plane are reviewed on the computer. FINDINGS: No acute fractures are evident. Vertebral body alignment is normal. Degenerative disc changes are present throughout the cervical spine. Vertebral body heights are preserved. No compression deformity is evident. Posterior endplate spurring is present C5-6. Final canal stenosis is present measuring 0.7 cm AP dim ension. Milder endplate changes without stenosis is present C6-7 and C4-5. No neural foraminal stenosis is evident. Scattered infiltrates are in the posterior right apex. Follow-up can be performed. Underlying mass is not excluded. IMPRESSION: 1. No acute osseous abnormality cervical spine. 2. Endplate spurring C5-6 with spinal canal stenosis. 3. Multilevel degenerative disc changes greater in the mid to lower cervical spine. 4. Right apical densities likely infiltrate. Underlying mass is not excluded and follow-up CT chest r ecommended. [facility], , 09/19/2024 2:50 PM
--- NOTE | 2024-09-19 15:00 | ED ---
Head Injury HPI - General Chief complaint: Head Injury Stated complaint: fall Time Seen by Provider: 09/19/24 13:34 Source: patient, EMS, RN notes reviewed Mode of arrival: EMS Limitations: no limitations - History of Present Illness Initial comments: 79-year-old female presents emergency department with chief complaint of a fall. Patient states she slipped on ice falling straight back striking her head. States she bounced off the ground. Patient complains of mild headache denies any significant neck pain no back pain no extremity injuries. Patient offers no other complaints. Denies any blood thinners. - Related Data Home Medications Medication Instructions Recorded Confirmed Lovastatin 40 mg PO PC-SUPPER 06/12/15 07/17/20 atenoloL [Atenolol] 50 mg PO BID 06/12/15 07/17/20 Glucosamine/Chondr Blanco A Sod [Osteo 1 each PO DAILY 04/12/16 07/17/20 Bi-Flex Caplet] Multivitamins, Thera [Theragran] 1 each PO DAILY 04/12/16 07/17/20 Vitamin E (Dl,Tocopheryl Acet) 400 unit PO DAILY 04/12/16 07/17/20 [Vitamin E] Biotin [Biotin Disolve] 5,000 mcg PO DAILY 08/17/18 07/17/20 Magnesium 200 mg PO DAILY 07/12/19 07/17/20 Zinc 50 mg PO DAILY 07/12/19 07/17/20 Aspirin EC [Ecotrin] 162 mg PO DAILY 07/29/21 Previous Rx's Medication Instructions Recorded Azithromycin [Zithromax Z Pack] 0 tab PO DIRECTED #6 tab 09/19/24 Allergies/Adverse reactions: Allergies Allergy/AdvReac Type Severity Reaction Status Date / Time ampicillin Allergy Rash/Hives Verified 09/19/24 13:39 cephalexin monohydrate Allergy Unknown Verified 09/19/24 13:39 [From Keflex] Iodinated Contrast Media Allergy Unknown Verified 09/19/24 13:39 [Iodinated Contrast Media - IV Dye] Iodine and Iodide Containing Allergy Unknown Verified 09/19/24 13:39 Produc Penicillins Allergy Dyspnea Verified 09/19/24 13:39 shellfish derived [Shellfish] Allergy Unknown Verified 09/19/24 13:39 Sulfa (Sulfonamide Allergy Rash/Hives Verified 09/19/24 13:39 Antibiotics) Review of Systems ROS Statement: Those systems with pertinent positive or pertinent negative responses have been documented in the HPI. ROS Other: All systems not noted in ROS Statement are negative. Past Medical History Past Medical History: CVA/TIA, Hyperlipidemia, Hypertension Additional Past Medical History / Comment(s): TIA X 2 History of Any Multi-Drug Resistant Organisms: None Reported Past Surgical History: Appendectomy Additional Past Surgical History / Comment(s): COLONOSCOPY Past Anesthesia/Blood Transfusion Reactions: No Reported Reaction Past Psychological History: No Psychological Hx Reported Smoking Status: Light tobacco smoker Past Alcohol Use History: Occasional Past Drug Use History: None Reported - Past Family History Sister(s) Additional Family Medical History / Comment(s): car accident 67years old Father Family Medical History: Myocardial Infarction ([place]) Additional Family Medical History / Comment(s): 58years old Mother Family Medical History: Cancer Additional Family Medical History / Comment(s): at 94years old General Exam Limitations: no limitations General appearance: alert, in no apparent distress Head exam: Present: atraumatic, normocephalic, normal inspection Eye exam: Present: normal appearance, PERRL, EOMI. Absent: scleral icterus, conjunctival injection, periorbital swelling ENT exam: Present: normal exam, normal oropharynx, mucous membranes moist Neck exam: Present: normal inspection. Absent: tenderness, meningismus, full ROM (In c-collar), lymphadenopathy Respiratory exam: Present: normal lung sounds bilaterally. Absent: respiratory distress, wheezes, rales, rhonchi, stridor Cardiovascular Exam: Present: regular rate, normal rhythm, normal heart sounds. Absent: systolic murmur, diastolic murmur, rubs, gallop, clicks Extremities exam: Present: normal inspection, full ROM, normal capillary refill. Absent: tenderness, pedal edema, joint swelling, calf tenderness Back exam: Present: full ROM. Absent: tenderness, muscle spasm, paraspinal tenderness, vertebral tenderness Neurological exam: Present: alert, oriented X3, CN II-XII intact, reflexes normal. Absent: motor sensory deficit Course Vital Signs 09/19/24 09/19/24 13:34 15:18 Temperature 97.8 F 97.8 F Pulse Rate 68 62 Respiratory 18 18 Rate Blood Pressure 175/67 157/78 O2 Sat by Pulse 98 97 Oximetry Medical Decision Making - Medical Decision Making Was pt. sent in by a medical professional or institution (WALT Odom, INFECTION CONTROL PRACTITIONER, urgent care, hospital, or [place] health care facility...) When possible be specific @ -No Did you speak to anyone other than the patient for history (EMS, parent, family, police, friend...)? What history was obtained from this source @ -No Did you review nursing and triage notes (agree or disagree)? Why? @ -I reviewed and agree with nursing and triage notes Were old charts reviewed (outside hosp., previous admission, EMS record, old EKG, old radiological studies, urgent care reports/EKG's, [place] health care facility records)? Report findings @ -No old charts were reviewed Differential Diagnosis (chest pain, altered mental status, abdominal pain women, abdominal pain men, vaginal bleeding, weakness, fever, dyspnea, syncope, headache, dizziness, GI bleed, back pain, seizure, CVA, palpatations, mental health, musculoskeletal)? @ -Fall, intracranial hemorrhage, skull fracture, cervical fracture EKG interpreted by me (3pts min.). @ -None X-rays interpreted by me (1pt min.). @ -None done CT interpreted by me (1pt min.). @ -D brain, C-spine showing no acute intracranial hemorrhage, mass effect, cervical fracture there is evidence of upper lobe pneumonia. U/S interpreted by me (1pt. min.). @ -None done What testing was considered but not performed or refused? (CT, X-rays, U/S, labs)? Why? @ -None What meds were considered but not given or refused? Why? @ -None Did you discuss the management of the patient with other professionals (professionals i.e. WALT Odom, INFECTION CONTROL PRACTITIONER, lab, RT, psych nurse, social welfare research worker, operations and maintenance manager, teacher, youth probation officer, case manager specialist)? Give summary @ -No Was smoking cessation discussed for >3mins.? @ -No Was critical care preformed (if so, how long)? @ -No Were there social determinants of health that impacted care today? How? (Homelessness, low income, unemployed, alcoholism, drug addiction, transportation, low edu. Level, literacy, decrease access to med. care, long term, rehab)? @ -No Was there de-escalation of care discussed even if they declined (Discuss DNR or withdrawal of care, Hospice)? DNR status @ -No What co-morbidities impacted this encounter? (DM, HTN, Smoking, COPD, CAD, Cancer, CVA, ARF, Chemo, Hep., AIDS, mental health diagnosis, sleep apnea, morbid obesity)? @ -None Was patient admitted / discharged? Hospital course, mention meds given and ro radha, prescriptions, significant lab abnormalities, going to OR and other pertinent info. @ -Patient presented after a fall, head injury CT is negative patient feels improved at this time. There is evidence of pneumonia on x-ray she states she has been having a cough. Patient will be discharged on oral antibiotics return parameters g discussed Undiagnosed new problem with uncertain prognosis? @ -No Drug Therapy requiring intensive monitoring for toxicity (Heparin, Nitro, Insulin, Cardizem)? @ -No Were any procedures done? @ -No Diagnosis/symptom? @ -Fall, closed head injury, pneumonia Acute, or Chronic, or Acute on Chronic? @ -Acute Uncomplicated (without systemic symptoms) or Complicated (systemic symptoms)? @ -Uncomplicated Side effects of treatment? @ -No Exacerbation, Progression, or Severe Exacerbation? @ -No Poses a threat to life or bodily function? How? (Chest pain, [place], [place], pneumonia, PE, COPD, DKA, ARF, appy, cholecystitis, CVA, Diverticulitis, Homicidal, Suicidal, threat to staff... and all critical care pts) @ -No Disposition Clinical Impression: Fall, Closed head injury, Pneumonia Disposition: HOME SELF-CARE Condition: Stable Instructions (If sedation given, give patient instructions): Head Injury (ED) Additional Instructions: Please return to the Emergency Department if symptoms worsen or any other concerns. Prescriptions: Azithromycin [Zithromax Z Pack] 0 tab PO DIRECTED #6 tab Is patient prescribed a controlled substance at d/c from ED?: No Referrals: Yaron Suarez DO [Primary Care Provider] - 1-2 days Time of Disposition: 15:04
[2024-09-19 15:20] VITALS: BP 157/78; PULSE 62
== END 2024-09-19 15:20 | disposition home or self-care (01) ==
LOC: EC 13:33
DX: S09.90XA Unspecified injury of head, initial encounter (principal); J18.9 Pneumonia, unspecified organism; Z86.73 Personal history of transient ischemic attack (TIA), and cerebral infarction without residual deficits; F17.200 Nicotine dependence, unspecified, uncomplicated; Z88.0 Allergy status to penicillin; Z88.8 Allergy status to other drugs, medicaments and biological substances; Z88.2 Allergy status to sulfonamides; Z91.041 Radiographic dye allergy status; Z91.013 Allergy to seafood; W00.0XXA Fall on same level due to ice and snow, initial encounter
CPT/HCPCS: 70450; 72125; 99284

== ENCOUNTER → 2024-12-11 | Outpatient (CLI) | payer MEDICARE, BC ==
--- NOTE | 2024-12-11 21:38 | US ---
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 Dizziness . TECHNIQUE: Grayscale, color Doppler and spectral Doppler evaluation of the bilateral carotid systems and vertebral arteries. Indirect Doppler criteria was utilized. FINDINGS: EXAM MEASUREMENTS: RIGHT: Peak Systolic Velocity (PSV) cm/sec ----- Right CCA: 103 ----- Right ICA: 65 ----- Right ECA: 68.9 ICA/CCA ratio: 0.6 RIGHT: End Diastole cm/sec ----- Right CCA: 17.5 ----- Right ICA: 13.6 ----- Right ECA: 6.5 LEFT: Peak Systolic Velocity (PSV) cm/sec ----- Left CCA: 99.2 ----- Left ICA: 101 ----- Left ECA: 72.9 ICA/CCA ratio: 1.0 LEFT: End Diastole cm/sec ----- Left CCA: 18.2 ----- Left ICA: 25.3 ----- Left ECA: 0 VERTEBRALS (direction of flow): Right Vertebral: Antegrade Left Vertebral: Antegrade Rhythm: Normal [employer]RE[employer] DIRECTOR NOTES: No significant stenosis seen Color Doppler imaging shows patency with blood flow throughout the carotid artery. Spectral waveforms are within normal limits. There is mild atherosclerotic calcification and plaque at the left carotid bifurcation. IMPRESSION: No hemodynamically significant internal carotid artery stenosis on either side. Criteria for Assigning % of Stenosis / Diameter reduction (Estimation based on the indirect measurements of the internal carotid artery velocities (ICA PSV). 1. Normal (no stenosis)=ICA PSV < 180 cm/s: ratio < 2.0: ICA EDV<40 cm/s. 2. Less than 50% stenosis=ICA PSV < 180 cm/s: ratio < 2.0: ICA EDV<40 cm/s. 3. 50 to 69% stenosis=ICA PSV of 180 to 230 cm/s: ration 2.0 ? 4.0: ICA EDV 40-100 cm/s. PSV 125-180 cm/sec and ICA/CCA PSV Ratio ? 2.0 is also consistent with 50-69% stenosis 4. Greater than 70% stenosis to near occlusion= ICA PSV > 230 cm/s: ratio > 4.0: ICA EDV > 100 cm/s. 5. Near occlusion= ICA PSV velocities may be low or undetectable: variable ratio and ICA EDV. 6. Total occlusion=unable to detect flow. [facility], , 12/11/2024 9:35 PM
== END | disposition home or self-care (01) ==
LOC: RADUSWWP 14:50
PROVIDERS: ATTEND Family Medicine
DX: R48.2 Apraxia (principal); R42 Dizziness and giddiness
CPT/HCPCS: 93880

== ENCOUNTER → 2024-12-17 | Outpatient (CLI) | payer MEDICARE, BC ==
[2024-12-17 15:41] LABS: African American GFR (CKD) >90 (>60 ml/min/1.73 sqM); Blood Urea Nitrogen 26 mg/dL (7-17); Non-African American GFR(CKD) 84 (>60 ml/min/1.73 sqM)
--- NOTE | 2024-12-17 18:25 | MR ---
INDICATION: Patient age:Female; 79 years old; Reason for study: R48.2 APRAXIA; PHH. COMPARISON: MRI brain 04/10/2021, 12/27/2018, MRA head 04/10/2021, CT brain C-spine 09/19/2024, CT brain , 06/12/2015. TECHNIQUE: Multi planar, multi sequence imaging was performed through the brain. The patient was then given 5.5 cc of Gadobutrol intravenously and multi planar, T1 fat-saturation images were obtained. FINDINGS: The kraus-white junctions, ventricular system, basal cisterns appear unremarkable. Appropriate age-rel ated cerebral volume loss. Diffusion-weighted imaging shows no evidence of restricted diffusion to foster ggest acute/subacute infarct. Intracranial arterial flow voids are maintained. Midline structures speedy w no abnormality. Progression of patchy areas of high T2/FLAIR signal intensity are seen within the p eriventricular and subcortical white matter. There several of the lesions are present prior examinati on but have increased in size from prior exam. There are a few new lesions. Largest lesion is within the frontoparietal region periventricular white matter measuring up to 1.3 cm it is new from prior ex am (series 701, image 24). The susceptibility weighted images with a focal region of blooming artifac t within the right frontal lobe consistent with prior hemosiderin deposition. After administration of gadolinium, no abnormal enhancement is seen. The bone marrow signal is within normal limits. The paranasal sinuses are unremarkable. Bilateral ap hakia. IMPRESSION: 1. No evidence of intracranial mass, acute/subacute infarct, or abnormal enhancement. 2. Progression of mild nonspecific white matter changes from prior MRI, likely related to small vesse l ischemic disease. [facility], , 12/17/2024 6:23 PM
--- NOTE | 2024-12-18 20:55 | CT ---
EXAMINATION TYPE: CT chest w con DATE OF EXAM: 12/17/2024 4:26 PM COMPARISON: None. 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 TECHNIQUE: Axial images were obtained at 5 mm thick sections. Reconstructed images are reviewed on [employer] computer in the coronal plane. Contrast used:100 ml mL of Isovue 300 with IV Contrast, (none if empty) Oral contrast used: (none if empty) CT DLP: 239 mGycm, Automated exposure control for dose reduction was used. FINDINGS: Portion of the thyroid visualized is normal. Some mild groundglass opacities at the right apex. There may be some scarring present. Some minimal p leural thickening is in the posterior lateral right upper lung field. Series 4 image 19. There is a small irregular groundglass opacity within the superior segment right lower lobe measuring 0.9 cm. Series 4 image 25. There is a suspicious groundglass opacity in the posterior left upper lobe extending to the pleural m argin measuring 1.5 x 1.9 cm. Consider additional workup for possible neoplasm. There is thickening along the posterior lateral right lung with a thickness of approximately 0.9 cm. This is nonspecific. Neoplasm, scarring, atelectasis, pneumonia could be considered. No enlarged mediastinal or hilar adenopathy is evident. The ascending aorta diameter at the level o f the main pulmonary artery is 3.2 cm. The main pulmonary artery diameter at the bifurcation is 2.0 cm. No significant coronary artery calcifications. Limited CT sections are obtained through the upper abdomen. Minimal thickening of the left adrenal gl and may be present. There is a left renal cyst. IMPRESSION: 1. Suspicious groundglass opacity posterior left lung. 2. Additional areas which are nonspecific. Infectious etiology and neoplasm however cannot be exclude d. Additional workup is recommended. [facility], , 12/18/2024 8:52 PM
== END | disposition home or self-care (01) ==
LOC: RADCTMAIN 14:56
PROVIDERS: ATTEND Family Medicine
DX: D49.1 Neoplasm of unspecified behavior of respiratory system (principal); R48.2 Apraxia; R90.82 White matter disease, unspecified
CPT/HCPCS: 82565; 84520; 71260; 36415; 70553; Q9967; A9585